=== PATIENT | male | born 1980 ===

== ENCOUNTER → 2020-08-18 13:25 | Outpatient (ROUT) | payer OTHER, SELFPAY ==
[2020-08-18 13:55] LABS: COVID19 -Nasal RAPID Negative (Negative)
== END ==
PROVIDERS: Visit Provider Family Medicine
DX: Z20.822 Contact with and (suspected) exposure to COVID-19 (principal)
CPT/HCPCS: 87635

== ENCOUNTER → 2023-01-10 17:15 | Outpatient (ROUT) | payer OTHER, SELFPAY ==
[2023-01-10 17:21] LABS: Add Manual Diff / Slide Review NO; Basophils Absolute Auto 100 /uL (0-100); Basophils Percent Auto 0.9 % (0-2); Eosinophils Absolute Auto 100 /uL (0-450); Eosinophils Percent Auto 1.1 % (2-4); Hematocrit 44.3 % (41-53); Hemoglobin 15.9 g/dL (13.5-17.5); Lymphocytes Absolute Auto 1800 /uL (1100-4500); Lymphocytes Percent Auto 24.7 % (25-40); Mean Corpuscular HGB Conc 35.7 % (30-36); Mean Corpuscular Hemoglobin 31.1 PG (26-34); Monocytes Absolute Auto 400 /uL (0-900); Monocytes Percent Auto 5.4 % (3-14); Neutrophils Absolute Auto 5000 /uL (1500-7000); Neutrophils Percent Auto 67.9 % (50-75); Platelet Count 191 X10^3/uL (150-400); Red Cell Distribution Width 12.4 % (11.6-14.8); White Blood Cell Count 7.4 X10^3/uL (4.5-11.0)
[2023-01-10 17:28] LABS: Alanine Aminotransferase 42 IU/L (<50); Albumin 4.7 g/dL (3.5-5.0); Albumin Globulin Ratio 1.4 (1.0-2.8); Alkaline Phosphatase 71 U/L (38-126); Aspartate Aminotransferase 36 IU/L (17-59); Bilirubin Total 0.7 mg/dL (0.2-1.3); Blood Urea Nitrogen 12 mg/dL (9-20); Calcium 9.3 mg/dL (8.4-10.2); Carbon Dioxide 23 mmol/L (22-32); Chloride 98 mmol/L (98-107); Estimated Glomerular Filt Rate > 60 mL/min (>60); Globulin 3.4 g/dL (1.7-4.1); Glucose 351 mg/dL (70-100); HEMOLYSIS 26 (0-50); Potassium 4.4 mmol/L (3.4-5.1); Sodium 132 mmol/L (137-145); Total Protein 8.1 g/dL (6.3-8.2)
[2023-01-10 17:58] LABS: Thyroid Stimulating Hormone 1.54 uIU/mL (0.47-4.68)
[2023-01-10 17:59] LABS: Prostate Specific Antigen 0.697 ng/mL (0.10-4.00)
[2023-01-10 18:01] LABS: Testosterone 378 ng/dL (132-813)
[2023-01-11 21:19] LABS: Labcorp Hemoglobin (Hb) A1c 11.6 % (4.8-5.6)
[2023-01-12 10:39] LABS: Vitamin D 25 Hydroxy (D3) 27.7 ng/mL (30.0-100.0)
== END ==
PROVIDERS: Visit Provider Family Medicine
DX: Z00.00 Encounter for general adult medical examination without abnormal findings (principal); N52.9 Male erectile dysfunction, unspecified; R53.83 Other fatigue; R35.1 Nocturia
CPT/HCPCS: 80053; 82306; 83036; 84153; 84403; 84443; 85025

== ENCOUNTER → 2023-04-11 13:44 | Outpatient (ROUT) | payer OTHER, SELFPAY ==
[2023-04-11 14:31] LABS: Hemoglobin A1C% w Est Avg Glu 10.5 % (4.0-6.0)
== END ==
PROVIDERS: Visit Provider Family Medicine
DX: E11.9 Type 2 diabetes mellitus without complications (principal)
CPT/HCPCS: 83036

== ENCOUNTER → 2023-04-13 13:01 | Outpatient (ROUT) | payer OTHER, SELFPAY ==
[2023-04-14 14:08] LABS: C Peptide 1.5 ng/mL (1.1-4.4); Insulin Level Total 7.6 uIU/mL (2.6-24.9)
[2023-04-18 13:38] LABS: GAD-65 Antibody <5.0 U/mL (0.0-5.0)
== END ==
PROVIDERS: Visit Provider Family Medicine
DX: E11.9 Type 2 diabetes mellitus without complications (principal); R73.9 Hyperglycemia, unspecified
CPT/HCPCS: 83525; 84681; 86341

== ENCOUNTER → 2023-07-18 14:46 | Outpatient (ROUT) | payer OTHER, SELFPAY | PROVIDERS: Visit Provider Family Medicine | DX: E11.9 Type 2 diabetes mellitus without complications (principal) | CPT/HCPCS: 83036 ==

== ENCOUNTER → 2023-12-05 13:28 | Outpatient (ROUT) | payer OTHER, SELFPAY ==
[2023-12-05 14:15] LABS: Hemoglobin A1C% w Est Avg Glu 6.3 % (4.0-6.0)
== END ==
PROVIDERS: Visit Provider Family Medicine
DX: E11.9 Type 2 diabetes mellitus without complications (principal)
CPT/HCPCS: 83036

== ENCOUNTER → 2024-09-11 17:31 | Outpatient (ROUT) | payer OTHER, SELFPAY ==
[2024-09-11 17:46] LABS: Hemoglobin A1C% w Est Avg Glu 5.9 % (4.0-6.0)
== END ==
PROVIDERS: Visit Provider Family Medicine
DX: E11.9 Type 2 diabetes mellitus without complications (principal); E55.9 Vitamin D deficiency, unspecified
CPT/HCPCS: 83036

== ENCOUNTER → 2025-04-08 12:31 | Outpatient (ROUT) | payer OTHER, SELFPAY ==
[2025-04-08 12:56] LABS: Hemoglobin A1C% w Est Avg Glu 6.1 % (4.0-6.0)
[2025-04-08 12:59] LABS: Alanine Aminotransferase 22 IU/L (<50); Albumin 5.1 g/dL (3.5-5.0); Albumin Globulin Ratio 1.5 (1.0-2.8); Alkaline Phosphatase 54 U/L (38-126); Blood Urea Nitrogen 17 mg/dL (9-20); Calcium 9.4 mg/dL (8.4-10.2); Carbon Dioxide 23 mmol/L (22-32); Chloride 101 mmol/L (98-107); Cholesterol 178 mg/dL (140-199); Estimated Glomerular Filt Rate > 60 mL/min (>60); Globulin 3.3 g/dL (1.7-4.1); Glucose 112 mg/dL (70-99); HDL Cholesterol 81 mg/dL (40-60); HEMOLYSIS 18 (0-50); Potassium 4.0 mmol/L (3.4-5.1); Sodium 137 mmol/L (137-145); Total Protein 8.4 g/dL (6.3-8.2); Triglycerides 87 mg/dL (35-150)
[2025-04-08 13:49] LABS: Vitamin B12 578 pg/mL (239-931)
[2025-04-08 14:12] LABS: Protein (Total) Urine Random 11 mg/dL (0-12); Protein Creatinine Ratio Urine 0.53 GRAM/24H
[2025-04-08 14:25] LABS: Vitamin D 25 Hydroxy (D3) > 126 ng/mL (30.0-100.0)
== END ==
PROVIDERS: Visit Provider Family Medicine
DX: E11.9 Type 2 diabetes mellitus without complications (principal); E55.9 Vitamin D deficiency, unspecified
CPT/HCPCS: 80053; 80061; 82306; 82570; 82607; 83036; 84156